=== PATIENT | male | born 1940 | race Caucasian/White ===

== ENCOUNTER 2021-03-13 08:11 | Outpatient (CLI) | payer MEDICARE, OTHER ==
--- NOTE | 2021-03-13 08:57 | XRAY Report ---
PROCEDURE: Hip w/Pelvis 2-3V RT INDICATIONS: PAIN IN RIGHT HIP JOINT TECHNIQUE: AP pelvis with lateral view of the right hip. COMPARISON: None. FINDINGS: Bones: No acute fractures or dislocations. Pelvic ring appears intact. No suspicious bony lesions. 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 Degenerative changes are seen in the inclu ded lower lumbar spine. Soft tissues: The visualized bowel gas pattern is normal. No suspicious soft tissue calcifications. Surgical clips are seen projecting over the pubic symphysis. IMPRESSION: 1.No acute osseous abnormality. 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 3.Degenerative changes in the included lower lumbar spine. Reviewed by: Dane Adler MD on 03/13/2021 8:56 AM PST Approved by: Dane Adler MD on 03/13/2021 8:56 AM PST Station ID: [id number]
== END 2021-03-13 08:12 | disposition home or self-care (01) ==
LOC: DI.S 08:11
PROVIDERS: ATTEND Family Medicine
DX: M16.11 Unilateral primary osteoarthritis, right hip (principal); M47.816 Spondylosis without myelopathy or radiculopathy, lumbar region

== ENCOUNTER 2021-10-22 22:04 | Emergency (ER) | payer MEDICARE, OTHER ==
--- NOTE | 2021-10-22 22:17 | ED Physician Documentation ---
PD HPI DYSPNEA - Stated complaint Stated Complaint: ASTHMA ATTACK - Chief complaint Chief Complaint: Resp - History obtained from History obtained from: Patient - History of Present Illness Timing - onset: How many days ago (2-3) Timing - details: Abrupt onset, Intermittant Pain level now: 0 Worsened by: Exertion, Laying flat, Coughing Associated symptoms: Cough. No: Fever, Hemoptysis, Chest pain / discomfort, Palpitations, Bilateral edema, Unilateral edema, Anxiety Recently seen: Not recently seen - Additional information Additional information: patient c/o "asthma" (per patient). "had a cold the last few days", describes symptoms as mild upper respiratory congestion, moist cough, mild sinus congestion. denies fever. He feels this is similar to previous episodes in which he had URI that then triggered his asthma which, in turn, caused coughing spasms. It was the onset of coughing spasms that prompted him to come to ED tonight. Over the past few hours, he has had episodes of coughing that last up to 30-40 seconds during which he feels he cannot catch his breath. He says he had an episode shortly [employer] during which he felt like he might pass out due to intensity of coughing and not being able to take a deep breath in until he was done coughing. He says that when he has had episodes this severe in the past, he sometimes was given "a shot of adrenaline" by his PMD in the office or in an ER Review of Systems Constitutional: denies: Fever, Chills, Sweats Throat: denies: Sore throat Cardiac: reports: Reviewed and negative Respiratory: reports: Dyspnea (mild dyspnea, marked when coughing), Cough. denies: Hemoptysis, Wheezing GI: reports: Reviewed and negative Musculoskeletal: denies: Extremity swelling PD PAST MEDICAL HISTORY - Past Medical History Respiratory: Asthma - Past Surgical History Past Surgical History: No - Present Medications Home Medications: Ambulatory Orders Medication Instructions Recorded Confirmed Albuterol Sulf [Ventolin Hfa 1 - 2 puffs INH Q4HR PRN #1 inhaler 10/22/21 10/24/21 Inhaler] Benzonatate [Tessalon] 200 mg PO TID PRN #20 cap 10/24/21 Lisinopril [Zestril] 0 mg PO DAILY 10/24/21 10/24/21 - Allergies Allergies/Adverse Reactions: Allergies Allergy/AdvReac Type Severity Reaction Status Date / Time Penicillins AdvReac Unknown Verified 10/24/21 15:31 - Social History Does the pt smoke?: No Smoking Status: Never smoker Does the pt drink ETOH?: Yes Does the pt have substance abuse?: No - Immunizations Immunizations are current?: Yes PD ED PE NORMAL - Vitals Vital signs reviewed: Yes - General General: Alert and oriented X 3, No acute distress, Well developed/nourished - HEENT HEENT: Moist mucous membranes, Pharynx benign - Neck Neck: Supple, no meningeal sign - Cardiac Cardiac: RRR, No murmur - Respiratory Respiratory: No respiratory distress, Clear bilaterally - Abdomen Abdomen: Soft, Non tender - Extremities Extremities: No edema Results - Vitals Vitals: Oxygen O2 Source Room air PD MEDICAL DECISION MAKING - ED course Complexity details: re-evaluated patient, considered differential, d/w patient, d/w family ED course: given duoneb and decadron. Upon finishing the H+P but before I left the room, patient had one of his coughing "fits"; a staccato cough lasting 5-10 seconds during which he was unable to take in a deep breath. Given that he says he has responded well to epinephrine in the past with these coughing spasms, I thought it reasonable to administer IM epinephrine at 0.2 mg dose. On reevaluation, he says he feels much better and has not had more episodes of the coughing spasms/fits since receiving the medications. He asks if there is anything over the counter he can take, and I advised him to try robitussin DM, with a dose given in ED prior to d/c. Return precautions discussed. H+P c/w viral URI and lungs are clear to auscultation bilaterally with 97% pulse ox on room air and thus no testing , including imaging, is undertaken at this time Departure - Departure Disposition: 01 Home, Self Care Clinical Impression: Upper respiratory tract infection Qualifiers: URI type: unspecified URI Qualified Code(s): J06.9 - Acute upper respiratory infection, unspecified Asthma exacerbation Qualifiers: Asthma severity: mild Asthma persistence: intermittent Qualified Code(s): J45.21 - Mild intermittent asthma with (acute) exacerbation Condition: Good Instructions: ED Reactive Airway Disease, ED Upper Resp Infec No Abx Tx Prescriptions: Albuterol Sulf [Ventolin Hfa Inhaler] 1 - 2 puffs INH Q4HR PRN #1 inhaler PRN Reason: Shortness Of Air/Wheezing Comments: Prescriptions for prednisone (steroid) and an Albuterol inhaler have been electronically submitted to [facility] in [place]. The albuterol inhaler you have in the ER appears to have . You can also use an [id number] cough suppressant as per label instructions (dextromethorphan; this is available in many products such as robitussin-DM and Delsym). Discharge Date/Time: 10/22/21 23:30
[2021-10-22] MEDS ORDERED: EPINEPHrine 1 MG/ML AMP IM STA (22:33)
[2021-10-22] MEDS ORDERED: DEXAMETHASONE 10 MG/ML VIAL PO STA (22:33)
[2021-10-22] MEDS ORDERED: CHERRY SYRUP 10 ML UDC PO ONE (22:33)
[2021-10-22] MEDS ORDERED: IPRATROPIUM/ALBUTEROL 3 ML NEB INH ONE (22:35)
[2021-10-22] MEDS ORDERED: IPRATROPIUM/ALBUTEROL 3 ML NEB INH STA (23:01)
[2021-10-22] MEDS ORDERED: guaiFENesin/DEXTROMETHORPHAN 10 ML UDC PO STA (23:11)
[2021-10-22 23:32] VITALS: BP 148/84
== END 2021-10-22 23:30 | disposition home or self-care (01) ==
LOC: ED 22:04
DX: J06.9 Acute upper respiratory infection, unspecified (principal); J45.21 Mild intermittent asthma with (acute) exacerbation
CPT/HCPCS: 94640; 99283; A9270

== ENCOUNTER 2021-10-24 15:23 | Emergency (ER) | payer MEDICARE, OTHER ==
[2021-10-24] MEDS ORDERED: IPRATROPIUM/ALBUTEROL 3 ML NEB INH STA (15:44)
[2021-10-24 15:57] LABS: BASOPHILS % (AUTO) 0.2 %; LYMPHOCYTES # (AUTO) 2.1 10^3/uL (1.5-3.5); LYMPHOCYTES % (AUTO) 16.1 %; MEAN CORPUSCULAR HEMOGLOBIN 31.8 pg (27.0-31.0); MEAN CORPUSCULAR HGB CONC 33.3 g/dL (32.0-36.0); MEAN CORPUSCULAR VOLUME 95.5 fL (80.0-94.0); MEAN PLATELET VOLUME 9.7 fL (7.4-11.4); MONOCYTES # (AUTO) 1.4 10^3/uL (0.0-1.0); MONOCYTES % (AUTO) 10.6 %; NEUTROPHILS # (AUTO) 9.6 10^3/uL (1.5-6.6); NEUTROPHILS % (AUTO) 72.6 %; PLT - PLATELET COUNT 324 10^3/uL (130-450); RED CELL DISTRIBUTION WIDTH 12.2 % (12.0-15.0); WHITE BLOOD COUNT 13.2 x10^3/uL (4.8-10.8)
--- NOTE | 2021-10-24 15:59 | ED Physician Documentation ---
History of Present Illness - Stated complaint Stated Complaint: SOA - Chief complaint Chief Complaint: Resp - Additonal information Additional information: 81-year-old male presents emergency department for evaluation of sudden onset shortness of air. He does report a history of asthma. He was seen in this emergency department 2 nights ago for what was thought to be an acute asthma exacerbation. pt was dc with a rx for prednisone. since dc pt reports that he feels okay with the exception fo coughing fits which cause him to lose his ability to breth. he feels "spasms" in his chest. He had a episode again this afternoon that he could not resolve at home and called 911. EMS arrived and administered albuterol nebulizer. Following that they suspected that he may have some laryngeal spasm and then administered him 0.3 mg of epinephrine IM. On arrival to the emergency department he is breathing easily without any distress and denying chest pain. Room air saturations are 97%. Review of Systems Constitutional: denies: Fever Cardiac: reports: Reviewed and negative Respiratory: reports: Dyspnea, Cough, Wheezing GI: reports: Reviewed and negative : reports: Reviewed and negative Skin: reports: Reviewed and negative Musculoskeletal: reports: Reviewed and negative PD PAST MEDICAL HISTORY - Past Medical History Past Medical History: Yes Cardiovascular: Hypertension Respiratory: Asthma Neuro: Other Endocrine/Autoimmune: None GI: None : Other HEENT: None Psych: None Musculoskeletal: None Derm: None Other Past Medical History: prostate cancer - Past Surgical History Past Surgical History: Yes General: Cholecystectomy - Present Medications Home Medications: Ambulatory Orders Medication Instructions Recorded Confirmed Albuterol Sulf [Ventolin Hfa 1 - 2 puffs INH Q4HR PRN #1 inhaler 10/22/21 10/24/21 Inhaler] Benzonatate [Tessalon] 200 mg PO TID PRN #20 cap 10/24/21 Lisinopril [Zestril] 0 mg PO DAILY 10/24/21 10/24/21 - Allergies Allergies/Adverse Reactions: Allergies Allergy/AdvReac Type Severity Reaction Status Date / Time Penicillins AdvReac Unknown Verified 10/24/21 15:31 - Social History Does the pt smoke?: No Smoking Status: Never smoker Does the pt drink ETOH?: Yes ETOH Use: Liquor Does the pt have substance abuse?: No - Immunizations Immunizations are current?: Yes PD ED PE NORMAL - General General: Alert and oriented X 3, No acute distress, Well developed/nourished - HEENT HEENT: Atraumatic, Moist mucous membranes, Pharynx benign - Neck Neck: Supple, no meningeal sign - Cardiac Cardiac: RRR, No murmur, No gallop - Respiratory Respiratory: No: No respiratory distress (Rhonchorous expiratory breath sounds. Coughing events produce moderate respiratory distress.) - Abdomen Abdomen: Normal bowel sounds, Soft, Non tender - Back Back: No CVA TTP, No spinal TTP - Derm Derm: Normal color, Warm and dry, No rash - Extremities Extremities: No deformity - Neuro Neuro: Alert and oriented X 3, grill cook 2-12 intact Eye Opening: Spontaneous Motor: Obeys Commands Verbal: Oriented GCS Score: 15 Results - Vitals Vitals: Vital Signs - 24 hr 10/24/21 10/24/21 10/24/21 15:31 15:37 15:58 Temperature 37.7 C Heart Rate 84 84 69 Respiratory 16 17 18 Rate Blood Pressure 154/85 H 146/89 H O2 Saturation 96 97 10/24/21 10/24/21 16:43 17:28 Temperature Heart Rate 84 77 Respiratory 25 H 24 Rate Blood Pressure 124/72 128/74 O2 Saturation 97 96 Oxygen O2 Source Room air - Labs Labs: Laboratory Tests 10/24/21 10/24/21 10/24/21 15:50 15:50 15:50 WBC 13.2 H RBC 4.40 L Hgb 14.0 Hct 42.0 MCV 95.5 H MCH 31.8 H MCHC 33.3 RDW 12.2 Plt Count 324 MPV 9.7 Neut # (Auto) 9.6 H Lymph # (Auto) 2.1 [place] # (Auto) 1.4 H Eos # (Auto) 0.0 Baso # (Auto) 0.0 Absolute Nucleated RBC 0.00 Nucleated RBC % 0.0 Sodium 140 Potassium 3.4 L Chloride 103 Carbon Dioxide 28 Anion Gap 9.0 BUN 22 H Creatinine 0.9 Estimated GFR (MDRD) 81 L Glucose 122 H Calcium 9.1 Total Bilirubin 0.7 AST 21 ALT 21 Alkaline Phosphatase 54 B-Natriuretic Peptide 177 H Total Protein 6.6 L Albumin 3.9 Globulin 2.7 Albumin/Globulin Ratio 1.4 Lipase 28 SARS-CoV-2 (PCR) 10/24/21 16:00 WBC RBC Hgb Hct MCV MCH MCHC RDW Plt Count MPV Neut # (Auto) Lymph # (Auto) [place] # (Auto) Eos # (Auto) Baso # (Auto) Absolute Nucleated RBC Nucleated RBC % Sodium Potassium Chloride Carbon Dioxide Anion Gap BUN Creatinine Estimated GFR (MDRD) Glucose Calcium Total Bilirubin AST ALT Alkaline Phosphatase B-Natriuretic Peptide Total Protein Albumin Globulin Albumin/Globulin Ratio Lipase SARS-CoV-2 (PCR) NOT DETECTED - Rads (name of study) cxr Radiology: Final report received (Increased vascularity and minimal effusions most suggestive of edema.) PD MEDICAL DECISION MAKING - ED course Complexity details: considered differential, d/w patient, d/w family ED course: 81-year-old male presents emergency department for evaluation of coughing episodes that inhibit his ability to breathe. Seen 2 days ago thought to have an asthma exacerbation started on prednisone. At baseline he is using albuterol and Advair. On exam he had some generally rhonchorous lung sounds but no hypoxia or respiratory distress. He was administered a DuoNeb here in the emergency department which he felt improved his symptoms. Tessalon Perles were also administered and prescribed. Chest x-ray does suggest a mild volume overload though his BNP is only 177. He does not have any leg swelling or chest pain. Departure - Departure Disposition: 01 Home, Self Care Clinical Impression: Difficulty breathing Coughing Qualifiers: Cough type: acute Qualified Code(s): R05.1 - Acute cough Condition: Stable Record reviewed to determine appropriate education?: Yes Prescriptions: Benzonatate [Tessalon] 200 mg PO TID PRN #20 cap PRN Reason: Cough Comments: Juan you are seen today in the emergency department because you have had coughing spells at home that make it difficult for you to breathe. Your chest x-ray does not show any pneumonia. When you were seen here the other night you were treated for an asthma exacerbation and started on prednisone. Please continue this Medication. In order to help relieve you of the coughing episodes I am starting you on a medication called Tessalon Perles. This has been sent to the [facility] in [place]. You can take this 2-3 times a day. If you have a coughing episode at home I encourage you to use the albuterol with the spacer as provided and shown by respiratory therapy here. If your coughing episode does not resolve then you should return to the emergency department Your COVID test today is negative. continue to follow up closely with your primary care provider return to the ED for chest pain, shortness of air or any difficulty breathing
--- NOTE | 2021-10-24 16:03 | XRAY Report ---
PROCEDURE: Chest 1 View X-Ray INDICATIONS: chest pain TECHNIQUE: One view of the chest was acquired. COMPARISON: None FINDINGS: Surgical changes and devices: None. Lungs and pleura: There is overall appearance of increased vascularity with blunting the costophren ic angles, left greater than right. Mediastinum: Mediastinal contours appear normal. Heart size is enlarged. Bones and chest wall: No suspicious bony lesions. Overlying soft tissues appear unremarkable. IMPRESSION: Remaining with increased vascularity and minimal effusions most suggestive of edema. Reviewed by: Lisa Brandt MD on 10/24/2021 4:01 PM PDT Approved by: Lisa Brandt MD on 10/24/2021 4:01 PM PDT Station ID: [id number]
[2021-10-24 16:09] LABS: ALBUMIN 3.9 g/dL (3.2-5.5); ALBUMIN/GLOBULIN RATIO 1.4 (1.0-2.2); BILIRUBIN,TOTAL 0.7 mg/dL (0.2-1.0); CALCIUM 9.1 mg/dL (8.5-10.3); CREATININE 0.9 mg/dL (0.6-1.2); POTASSIUM 3.4 mmol/L (3.5-5.0); TOTAL PROTEIN 6.6 g/dL (6.7-8.2)
[2021-10-24] MEDS ORDERED: BENZONATATE 100 MG CAPSULE PO STA (16:38)
[2021-10-24] MEDS ORDERED: ALBUTEROL 1 PUFF INH STA (16:52)
[2021-10-24 17:29] VITALS: BP 128/74
== END 2021-10-24 18:10 | disposition home or self-care (01) ==
LOC: EDUNIT# → ED 15:23
DX: R05.1 Acute cough (principal); R06.09 Other forms of dyspnea; I10 Essential (primary) hypertension
CPT/HCPCS: 36415; 71045; 80053; 83690; 83880; 85025; 87635; 94640; 94664; 99284; A9270

== ENCOUNTER 2024-01-06 06:42 | Outpatient (CLI) | payer MEDICARE, OTHER | END 2024-01-06 23:59 | disposition left against medical advice (07) | LOC: EMS 06:42 | DX: U07.1 COVID-19 (principal) ==

== ENCOUNTER 2024-01-06 08:08 | Outpatient (CLI) | payer MEDICARE, OTHER | END 2024-01-06 23:59 | disposition critical access hospital (66) | LOC: EMS 08:08 | DX: R53.1 Weakness (principal); R05.9 Cough, unspecified; R06.2 Wheezing; U07.1 COVID-19 | CPT/HCPCS: A0425; A0429 ==

== ENCOUNTER 2024-01-06 08:38 | Emergency (ER) | payer MEDICARE, OTHER ==
--- NOTE | 2024-01-06 09:01 | ED Physician Documentation ---
PD HPI URI - Stated complaint Stated Complaint: COVID+/SOA - Chief complaint Chief Complaint: Resp - History obtained from History obtained from: Patient, EMS - History of Present Illness Timing - onset: How many weeks ago (1) Timing duration: Weeks (1) Timing details: Abrupt onset, Still present Associated symptoms: Chills, Nasal congestion, Dry cough, Dyspnea. No: Chest pain, NVD, Bilateral edema Contributing factors: COPD / asthma. No: Travel Improves by: MDI/nebulizer (using Albuterol MDI at home often though.) Worsened by: Activity Recently seen: Not recently seen (but home test positive for COVID a week ago.) Review of Systems Constitutional: reports: Chills, Myalgias PD PAST MEDICAL HISTORY - Past Medical History Cardiovascular: Hypertension Respiratory: Asthma Neuro: Other Endocrine/Autoimmune: None GI: None : Other HEENT: None Psych: None Musculoskeletal: None Derm: None - Past Surgical History Past Surgical History: Yes General: Cholecystectomy - Present Medications Home Medications: Ambulatory Orders Medication Instructions Recorded Confirmed Lisinopril [Zestril] 20 mg PO DAILY 10/24/21 01/06/24 Albuterol Sulfate [Proair 1 - 2 puffs INH Q4HR PRN 01/06/24 01/06/24 Respiclick] Aspirin [Aspirin Regimen] 81 mg PO DAILY 01/06/24 01/06/24 Doxycycline Hyclate 100 mg PO BID 7 Days #14 cap 01/06/24 Fluticasone Propion/Salmeterol 1 each IH DAILY 01/06/24 01/06/24 [Fluticasone-Salmeterol 250-50] dexAMETHasone [Decadron] 4 mg PO DAILY #5 tablet 01/06/24 - Allergies Allergies/Adverse Reactions: Allergies Allergy/AdvReac Type Severity Reaction Status Date / Time Penicillins AdvReac Unknown Verified 01/06/24 08:40 - Social History Does the pt smoke?: No Smoking Status: Never smoker Does the pt drink ETOH?: Yes Does the pt have substance abuse?: No - Immunizations Immunizations are current?: Yes PD ED PE NORMAL - Vitals Vital signs reviewed: Yes (neb enroute by EMS, Sats 96-98% RA here now.) - General General: Alert and oriented X 3, Well developed/nourished - HEENT HEENT: Pharynx benign - Neck Neck: Supple, no meningeal sign, No adenopathy - Cardiac Cardiac: RRR, No murmur - Respiratory Respiratory: No respiratory distress. No: Clear bilaterally (diffuse exp wheezing and prolonged exp phase. ) - Abdomen Abdomen: Soft, Non tender - Derm Derm: Normal color, Warm and dry - Extremities Extremities: No edema, No calf tenderness / cord - Neuro Neuro: Alert and oriented X 3, No motor deficit, Normal speech Results - Vitals Vitals: Vital Signs - 24 hr 01/06/24 01/06/24 01/06/24 08:40 09:59 11:19 Temperature 36.6 C Heart Rate 71 82 76 Respiratory 16 22 23 Rate Blood Pressure 148/79 H 142/73 H O2 Saturation 100 96 01/06/24 12:10 Temperature Heart Rate 94 Respiratory 19 Rate Blood Pressure 115/77 O2 Saturation 96 Oxygen O2 Source Room air - Labs Labs: Laboratory Tests 01/06/24 01/06/24 09:31 09:31 WBC 10.7 RBC 4.64 L Hgb 14.4 Hct 43.8 MCV 94.4 H MCH 31.0 MCHC 32.9 RDW 11.7 L Plt Count 216 MPV 9.7 Neut # (Auto) 9.5 H Lymph # (Auto) 0.6 L [place] # (Auto) 0.5 Eos # (Auto) 0.0 Baso # (Auto) 0.0 Absolute Nucleated RBC 0.00 Nucleated RBC % 0.0 Sodium 138 Potassium 3.9 Chloride 102 Carbon Dioxide 30 Anion Gap 6.0 BUN 14 Creatinine 0.9 Estimated GFR (MDRD) 80 L Glucose 119 H Calcium 8.9 Total Bilirubin 0.8 AST 21 ALT 18 Alkaline Phosphatase 62 Total Protein 6.4 Albumin 4.2 Globulin 2.2 Albumin/Globulin Ratio 1.9 Lipase 18 - Rads (name of study) chest xray Relevant Findings:: Prelim report reviewed (mild patchy atlectasis left lung base. ), EMP independent interpretation of test PD Medical Decision Making - ED course Complexity details: reviewed results (CBC and chemistry panel without notable abnormalities. Good renal function. Given duration and increased symptoms, Will add oral steroids and antibiotic. ), re-evaluated patient (improved sense of breathing with neb treatments. ), considered differential (having cough and wheezing, increased dyspnea. Seems c/w exac of his asthma, though consider pneumonia as well, and inceased bronchitis. ), d/w patient Departure - Departure Disposition: 01 Home, Self Care Clinical Impression: Viral pneumonitis, Exacerbation of asthma Condition: Stable Record reviewed to determine appropriate education?: Yes Prescriptions: dexAMETHasone [Decadron] 4 mg PO DAILY #5 tablet Doxycycline Hyclate 100 mg PO BID 7 Days #14 cap Comments: Your chest x-ray does not show any pneumonia. It does look like you were not fully expanding lungs on the x-ray. Try to take purposeful deep breaths regularly through the day. The albuterol inhaler regularly will open up the lungs better as well. I would suggest 2 to 3 puffs of your albuterol 4 times daily regularly and extra times if needed over the next week. In addition Tylenol 500 to 650 mg 4 times regularly a day to help with aches and fevers over the next several days just regular dosing. We will add Decadron steroid daily for 5 more days and also doxycycline antibiotic per chance secondary infection developing given the ongoing symptoms you are having. These would go along with common guidelines for people with underlying lung disease even in the setting of known viral process. [facility] in [place]. Forms: PCP List Discharge Date/Time: 01/06/24 12:14
[2024-01-06] MEDS: BENZONATATE 100 MG CAPSULE PO STA (09:22)
[2024-01-06] MEDS: dexAMETHasone 4 MG TABLET PO STA (09:22)
[2024-01-06 09:37] LABS: BASOPHILS % (AUTO) 0.2 %; EOSINOPHILS % (AUTO) 0.1 %; HCT - HEMATOCRIT 43.8 % (42.0-52.0); HGB - HEMOGLOBIN 14.4 g/dL (14.0-18.0); LYMPHOCYTES # (AUTO) 0.6 10^3/uL (1.5-3.5); LYMPHOCYTES % (AUTO) 5.5 %; MEAN CORPUSCULAR HGB CONC 32.9 g/dL (32.0-36.0); MEAN CORPUSCULAR VOLUME 94.4 fL (80.0-94.0); MEAN PLATELET VOLUME 9.7 fL (7.4-11.4); MONOCYTES # (AUTO) 0.5 10^3/uL (0.0-1.0); NEUTROPHILS # (AUTO) 9.5 10^3/uL (1.5-6.6); NEUTROPHILS % (AUTO) 88.7 %; PLT - PLATELET COUNT 216 10^3/uL (130-450); RED BLOOD COUNT 4.64 10^6/uL (4.70-6.10); RED CELL DISTRIBUTION WIDTH 11.7 % (12.0-15.0); WHITE BLOOD COUNT 10.7 x10^3/uL (4.8-10.8)
--- NOTE | 2024-01-06 09:44 | XRAY Report ---
PROCEDURE: Chest 1V INDICATIONS: cough, dyspnea, COVID x 1 wk TECHNIQUE: One view of the chest was acquired. COMPARISON: 10/24/2021. FINDINGS: Surgical changes and devices: None. Lungs and pleura: Mild patchy atelectasis, left lung base. Lungs are clear. Mediastinum: Mediastinal contours appear normal. Heart size is normal. Bones and chest wall: No suspicious bony lesions. Overlying soft tissues appear unremarkable. IMPRESSION: Mild patchy atelectasis, left lung base. Reviewed by: Garret Lawson MD on 01/06/2024 9:42 AM PDT Approved by: Garret Lawson MD on 01/06/2024 9:42 AM PDT Station ID: [id number]
[2024-01-06 09:50] LABS: ALBUMIN 4.2 g/dL (3.2-5.5); ALBUMIN/GLOBULIN RATIO 1.9 (1.0-2.2); BILIRUBIN,TOTAL 0.8 mg/dL (0.2-1.0); CALCIUM 8.9 mg/dL (8.5-10.3); CREATININE 0.9 mg/dL (0.6-1.3); POTASSIUM 3.9 mmol/L (3.5-4.5); TOTAL PROTEIN 6.4 g/dL (6.4-8.9)
[2024-01-06] MEDS: ALBUTEROL 1 PUFF INH STA (09:57)
[2024-01-06] MEDS: IPRATROPIUM/ALBUTEROL 3 ML NEB INH STA (11:16)
[2024-01-06 11:23] VITALS: O2SAT 96
[2024-01-06] MEDS: DOXYCYCLINE 100 MG TABLET PO STA (12:07)
[2024-01-06 12:18] VITALS: BP 115/77
== END 2024-01-06 12:14 | disposition home or self-care (01) ==
LOC: EDUNIT# → ED 08:38
DX: J12.9 Viral pneumonia, unspecified (principal); J45.901 Unspecified asthma with (acute) exacerbation; I10 Essential (primary) hypertension
CPT/HCPCS: 36415; 71045; 80053; 83690; 85025; 93005; 94640; 94664; 99284; A9270; J8540